=== PATIENT | female | born 1970 | race Caucasian/White ===

== ENCOUNTER → 2016-12-22 | Outpatient (REF) | payer OTHER ==
[~2016-12-22] MED LIST: ADDE10CA3 PO; BUSP1TAB PO; CEPH500C PO; CLON1TAB PO; COLA100C5 PO; HYDR50TA70 PO; IBUP-1022 PO; KLON2TAB PO; LAMI25TA PO; LAMO100T PO; LAMO150T PO; LAMO25TA2 PO; OXYC1TAB23 PO; PRIS1TAB PO; TRAZ50TA11 PO; VITA100T86 PO; VITA500046 PO; WELLTAB40 PO; ZOFR4TAB3 PO
[2016-12-22 10:46] LABS: MEAN CORPUSCULAR HEMOGLOBIN 33.2 pg (27.0-33.0); MEAN CORPUSCULAR HGB CONC 35.4 g/dl (32.0-36.5); MEAN CORPUSCULAR VOLUME 93.8 fl (80.0-96.0); RED CELL DISTRIBUTION WIDTH 13.3 % (11.5-14.5); WHITE BLOOD COUNT 6.2 K/mm3 (4.0-10.0)
[2016-12-22 10:58] LABS: ALBUMIN 3.9 GM/DL (3.2-5.2); ALBUMIN/GLOBULIN RATIO 1.03 (1.00-1.93); ALKALINE PHOSPHATASE 49 U/L (45-117); ALT/SGPT 17 U/L (12-78); ANION GAP 8 MEQ/L (8-16); AST/SGOT 14 U/L (15-37); BILIRUBIN,TOTAL 0.4 MG/DL (0.2-1.0); BLOOD UREA NITROGEN 7 MG/DL (7-18); CARBON DIOXIDE LEVEL 26 MEQ/L (21-32); CHLORIDE LEVEL 107 MEQ/L (98-107); CHOLESTEROL LEVEL 253 MG/DL (<200); CREATININE FOR GFR 0.85 MG/DL (0.55-1.02); GLOMERULAR FILTRATION RATE > 60.0 (>58); GLUCOSE, FASTING 86 MG/DL (70-105); POTASSIUM SERUM 4.1 MEQ/L (3.5-5.1); SODIUM LEVEL 141 MEQ/L (136-145); TOTAL PROTEIN 7.7 GM/DL (6.4-8.2); TRIGLYCERIDES LEVEL 111 MG/DL (<150)
== END ==
LOC: M SFHCPLAZ 08:24
PROVIDERS: ATTEND Nurse Practitioner Adult Health
DX: Z00.00 Encounter for general adult medical examination without abnormal findings (principal)

== ENCOUNTER → 2017-01-18 | Outpatient (REF) | payer OTHER | LOC: M SFHCLERA 09:24 | PROVIDERS: ATTEND Nurse Practitioner Family | DX: R30.0 Dysuria (principal) ==

== ENCOUNTER → 2017-01-19 | Outpatient (REF) | payer OTHER | LOC: M LAB REF 15:59 | PROVIDERS: ATTEND Physician Assistant | DX: J02.9 Acute pharyngitis, unspecified (principal) ==

== ENCOUNTER → 2017-05-09 | Outpatient (CLI) | payer OTHER | LOC: M RAD 07:41 | DX: R10.9 Unspecified abdominal pain (principal) ==

== ENCOUNTER → 2017-07-14 | Outpatient (CLI) | payer OTHER | LOC: M SMT 10:06 | DX: K59.00 Constipation, unspecified (principal) | CPT/HCPCS: 74018 ==

== ENCOUNTER → 2018-06-08 | Outpatient (CLI) | payer OTHER, BC ==
[~2018-06-08] MED LIST changes: -CLON1TAB PO; +CLON1TAB8 PO; +EXCETAB81 PO; -LAMO150T PO; +LAMO150T2 PO; -LAMO25TA2 PO; +LAMO25TA4 PO; +REXU1TAB3 PO; +TRAZ-160 PO; -TRAZ50TA11 PO; +VYVA70CA3 PO; +ZOFR4TAB14 PO; -ZOFR4TAB3 PO
--- NOTE | 2018-06-08 07:21 | ECGEPIP ---
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
[2018-06-08 08:26] LABS: BASO # 0.1 10^3/uL (0.0-0.2); EOS # 0.2 10^3/uL (0.0-0.50); EOS % 2.8 % (0.0-3.0); HEMATOCRIT 45.7 % (36.0-47.0); LYMPH # 1.5 10^3/uL (1.5-4.5); LYMPH % 23.7 % (24.0-44.0); MEAN CORPUSCULAR HEMOGLOBIN 31.7 pg (27.0-33.0); MEAN CORPUSCULAR HGB CONC 32.8 g/dl (32.0-36.5); MEAN CORPUSCULAR VOLUME 96.6 fl (80.0-96.0); MONO # 0.7 10^3/uL (0.0-0.8); MONO % 11.8 % (0.0-5.0); NEUTROPHILS # 3.7 10^3/uL (1.8-7.7); NEUTROPHILS % 60.5 % (36.0-66.0); PLATELET COUNT, AUTOMATED 247 10^3/uL (150-450); RED BLOOD COUNT 4.73 10^6/uL (4.00-5.40); WHITE BLOOD COUNT 6.1 10^3/uL (4.0-10.0)
[2018-06-08 08:56] LABS: BLOOD UREA NITROGEN 12 MG/DL (7-18); CALCIUM LEVEL 9.2 MG/DL (8.5-10.1); CARBON DIOXIDE LEVEL 26 MEQ/L (21-32); CHLORIDE LEVEL 108 MEQ/L (98-107); CREATININE FOR GFR 0.93 MG/DL (0.55-1.30); GLOMERULAR FILTRATION RATE > 60.0 (>58); GLUCOSE, FASTING 88 MG/DL (70-100); POTASSIUM SERUM 4.1 MEQ/L (3.5-5.1); SODIUM LEVEL 142 MEQ/L (136-145)
== END ==
LOC: M LAB 06:49
PROVIDERS: ATTEND Podiatrist
DX: M20.41 Other hammer toe(s) (acquired), right foot (principal); M79.674 Pain in right toe(s)

== ENCOUNTER 2018-06-16 06:49 | Day surgery (SDC) | payer OTHER, BC ==
[~2018-06-16] VITALS: Ht 157.5 cm; Wt 71.7 kg
[2018-06-16] MEDS ORDERED: LR 1,000 ML IV SCH ×2 (07:00→10:30)
[2018-06-16] MEDS ORDERED: PROPOFOL 200 MG/20 ML VIAL As Ordered ONE ×3 (07:12→09:38)
[2018-06-16] MEDS ORDERED: ONDANSETRON 4MG/2ML VIAL (J2405) As Ordered ONE (07:12)
[2018-06-16] MEDS ORDERED: LIDOCAINE 2% INJ 100 MG/5 ML SDV (FOR ANES.) As Ordered ONE (07:12)
[2018-06-16] MEDS ORDERED: MIDAZOLAM INJ 2 MG/2 ML VIAL (J2250) As Ordered ONE (07:13)
[2018-06-16] MEDS ORDERED: fentaNYL 100 MCG/2 ML INJECTION (J3010) As Ordered ONE (07:13)
[2018-06-16 07:50] LABS: URINE PREG TEST NEGATIVE (NEGATIVE)
[2018-06-16] MEDS ORDERED: dexameTHASONE 4 MG/ML 1ML VIAL (J1100) As Ordered ONE (08:23)
[2018-06-16] MEDS ORDERED: BACITRACIN PWD 50,000 UNITS VIAL As Ordered ONE (08:23)
[2018-06-16] MEDS ORDERED: NEOSPORIN GU IRRIG 20 ML VIAL As Ordered ONE (08:23)
[2018-06-16] MEDS ORDERED: LIDOCAINE 2% MDV 20 ML VIAL As Ordered ONE (08:23)
[2018-06-16] MEDS ORDERED: BUPIVACAINE HCL 0.5% 30 ML VIAL As Ordered ONE (08:23)
[2018-06-16] MEDS: PERCOCET 5MG/325MG TAB PO PRN ×2 (10:30→11:15)
[2018-06-16 11:05] VITALS: BP 129/66
--- NOTE | 2018-06-16 13:31 | REP ---
BILATERAL FOOT, SIX VIEWS: HISTORY: Arthroplasty. RIGHT FOOT: The patient is status post previous osteotomy of the first and second metatarsals . Metal screws are present. The patient is status post new arthroplasty of the right fourth digit. A metal pin traverses the proximal , intermediate and distal phalanges. There is no acute fracture or dislocation. The joint spaces are normal in appearance. IMPRESSION: The patient is status post new arthroplasty of the right fourth digit. There is anatomic alignment. LEFT FOOT: The patient is status post arthroplasty of the left fourth digit. A metal pin traverses the proximal , intermediate and distal phalanges. There is no acute fracture or dislocation. The joint spaces are normal in appearance. IMPRESSION: The patient is status post arthroplasty of the left fourth digit. There is anatomic alignment. Electronically Signed by Alban Lerner MD 06/16/2018 01:33 P
--- NOTE | 2018-06-16 19:18 | RO ---
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 PROCEDURE:1. SKIN PLASTY WITH DISTAL INTERPHALANGEAL JOINT ARTHROPLASTY AND EXTERNAL WIRE FIXATION 0.045 TIMES ONE 4TH TOE LEFT FOOT: 2.SKIN PLASTY WITH DISTAL INTERPHALANGEAL JOINT ARTHROPLASTY 4TH TOE RIGHT FOOT WITH EXTERNAL WIRE FIXATION AND 0.045 TIMES ONE SURGEON: Dr. Luisito Malave DPM. HORSE TRADER: None. ANESTHESIA: Local MAC. IRRIGATION: Dilate bacitracin, neomycin and polymyxin B solution. ESTIMATED BLOOD LOSS: Less than 2 mL. HEMOSTASIS: Ankle pneumatic tourniquet at 225 mmHg, 20 minutes on the right side and 21 minutes on the left side. DESCRIPTION OF OPERATION: Skin plasty with distal interphalangeal joint arthroplasty, 4th toe left foot, skin plasty of the distal interphalangeal joint arthroplasty 4th toe right foot, fixation is 0.045 external wire, 4th toe right foot, 4th toe left foot. DESCRIPTION OF OPERATION: On 06/16/2018 this 48-year-old white female was taken from her hospital room to the operating room and placed on the operating room table in the supine position. Following the induction of IV sedation, local and regional anesthesia bilateral extremities were prepped and draped in the usual aseptic manner. Attention was directed to the left extremity and the ankle pneumatic tourniquet was rapidly inflated to 225 mmHg after it exsanguinated with an Esmarch bandage. Attention was directed to the patient's 4th toe and the following procedure was performed. SKIN PLASTY WITH DISTAL INTERPHALANGEAL JOINT ARTHROPLASTY AND EXTERNAL WIRE FIXATION 0.045 TIMES ONE 4TH TOE LEFT FOOT: Attention was directed to the patient's left foot. There is noted to be a mallet toe deformity with a rotational deformity of the 4th toe. At this time a tear drop incision was placed over the middle phalanx with the tear-drop being shaped at the widest portion on the lateral margin. The skin and subcutaneous tissues were then excised, transverse tenotomy and capsulotomy was performed at the distal interphalangeal joint. The extensor joint tendon was retracted in a proximal direction and utilizing a power saw an osteotomy was performed through the majority of the middle phalanx with a bias being cut to take more on the lateral side. The bone was removed and the wound was flushed with copious amount of dilate Bacitracin, neomycin and polymyxin B solution, utilizing a external wire a wire was driven through the middle phalanx and into the middle and distal phalanx under C-ARM control. The wire was bent and a Jurgan ball was placed at the distal end of the wire. Utilizing a 4-0 supramid a modified Mcarthur type stitch was placed across the extensor tendon. Skin was copated and maintained with 4-0 Prolene in a simple interrupted type fashion. Attention was directed towards bandaging with a sterile compressive bandage applied consisting of Adaptic, 4 x 4's, 4 x 4 splints, Aurora, Kerlix, and Coban. Ankle pneumatic tourniquet was rapidly deflated and instantaneous capillary filling time was noted in digits in 1-5 of the patient's left foot. Attention was then directed to the patient's right foot and the following procedure was performed: SKIN PLASTY WITH DISTAL INTERPHALANGEAL JOINT ARTHROPLASTY 4TH TOE RIGHT FOOT WITH EXTERNAL WIRE FIXATION AND 0.045 TIMES ONE: Attention was directed to the patient's right foot where the procedure performed on the 4th toe of the left foot was now performed on the 4th toe of the right foot without variation or deletion. The only exception being that of anatomic location. Patient after having apparently tolerated the procedure well was taken from the operating room to the recovery room for further monitoring by the anesthesia department. Postoperative instructions were given. ALTAGRACIA
== END 2018-06-16 11:33 | disposition home or self-care (01) ==
LOC: M SDC 06:49
PROVIDERS: ATTEND Podiatrist
DX: M20.41 Other hammer toe(s) (acquired), right foot (principal); M20.42 Other hammer toe(s) (acquired), left foot; M79.675 Pain in left toe(s); M79.674 Pain in right toe(s); Z88.2 Allergy status to sulfonamides; Z79.899 Other long term (current) drug therapy; F41.9 Anxiety disorder, unspecified
CPT/HCPCS: 28285; 73630; 84703; 88300; J0690; J1100; J2250; J2405; J3010

== ENCOUNTER → 2018-09-14 | Outpatient (REF) | payer OTHER, BC ==
[2018-09-20 14:11] LABS: HPV LOW VOL RFLX Negative (Negative)
== END ==
LOC: M LAB REF 17:41
PROVIDERS: ATTEND Obstetrics & Gynecology
DX: Z12.4 Encounter for screening for malignant neoplasm of cervix (principal)
CPT/HCPCS: 87624; G0123

== ENCOUNTER 2018-12-13 10:22 | Emergency (ER) | payer OTHER, BC ==
[~2018-12-13] VITALS: Ht 154.9 cm; Wt 71.8 kg
[~2018-12-13 10:22] MED LIST changes: -TRAZ-160 PO; +TRAZ-252 PO
[2018-12-13 11:00] LABS: BASO # 0.1 10^3/uL (0.0-0.2); BASO % 0.9 % (0.0-1.0); EOS # 0.2 10^3/uL (0.0-0.50); EOS % 2.1 % (0.0-3.0); HEMATOCRIT 45.9 % (36.0-47.0); HEMOGLOBIN 15.5 g/dl (12.0-15.5); LYMPH # 1.9 10^3/uL (1.5-4.5); LYMPH % 20.8 % (24.0-44.0); MEAN CORPUSCULAR HEMOGLOBIN 32.4 pg (27.0-33.0); MEAN CORPUSCULAR HGB CONC 33.8 g/dl (32.0-36.5); MEAN CORPUSCULAR VOLUME 95.8 fl (80.0-96.0); MONO # 0.8 10^3/uL (0.0-0.8); MONO % 8.9 % (0.0-5.0); NEUTROPHILS # 6.2 10^3/uL (1.8-7.7); PLATELET COUNT, AUTOMATED 268 10^3/uL (150-450); RED BLOOD COUNT 4.79 10^6/uL (4.00-5.40); WHITE BLOOD COUNT 9.2 10^3/uL (4.0-10.0)
--- NOTE | 2018-12-13 11:39 | REP ---
CHEST, SINGLE VIEW: There is no evidence of acute infiltrate. No pleural effusion is seen. The heart is normal in size. The mediastinal silhouette is unremarkable. The visualized osseous structures are intact. IMPRESSION: No acute pulmonary disease. Electronically Signed by Luther Sykes MD 12/13/2018 02:40 P
[2018-12-13 11:51] LABS: ALBUMIN 3.6 GM/DL (3.2-5.2); ALT/SGPT 27 U/L (12-78); BILIRUBIN,DIRECT < 0.1 MG/DL (0.0-0.2); BILIRUBIN,TOTAL 0.3 MG/DL (0.2-1.0); BLOOD UREA NITROGEN 9 MG/DL (7-18); CALCIUM LEVEL 9.1 MG/DL (8.5-10.1); CARBON DIOXIDE LEVEL 21 MEQ/L (21-32); CHLORIDE LEVEL 107 MEQ/L (98-107); CK-MB VALUE MASS 1.3 NG/ML (<3.6); CPK CREATINE PHOSPHOKINASE 141 U/L (26-192); CREATININE FOR GFR 0.83 MG/DL (0.55-1.30); GLOMERULAR FILTRATION RATE > 60.0 (>58); GLUCOSE, FASTING 96 MG/DL (70-100); LIPASE 148 U/L (73-393); MB/CK RELATIVE INDEX 0.92 (< OR =4); NT-PRO BNP 36 PG/ML (<125); POTASSIUM SERUM 4.3 MEQ/L (3.5-5.1); SODIUM LEVEL 138 MEQ/L (136-145); TOTAL PROTEIN 7.4 GM/DL (6.4-8.2); TROPONIN I < 0.02 NG/ML (< 0.10)
[2018-12-13 17:08] LABS: CK-MB VALUE MASS < 1.0 NG/ML (<3.6); CPK CREATINE PHOSPHOKINASE 104 U/L (26-192); MB/CK RELATIVE INDEX 0.96 (< OR =4); TROPONIN I < 0.02 NG/ML (< 0.10)
[2018-12-13] MEDS ORDERED: ASPI81TA85 PO (17:38)
[2018-12-13] MEDS ORDERED: ASPIRIN 81 MG CHEW TABLET PO ONE (17:45)
[2018-12-13 18:13] VITALS: BP 138/72
--- NOTE | 2018-12-14 13:28 | ECGEPIP ---
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
== END 2018-12-13 18:17 | disposition home or self-care (01) ==
LOC: M ED 10:22
DX: R07.9 Chest pain, unspecified (principal); R00.0 Tachycardia, unspecified; F41.9 Anxiety disorder, unspecified; F32.9 Major depressive disorder, single episode, unspecified; Z77.22 Contact with and (suspected) exposure to environmental tobacco smoke (acute) (chronic); Z82.49 Family history of ischemic heart disease and other diseases of the circulatory system; Z79.82 Long term (current) use of aspirin; Z79.899 Other long term (current) drug therapy; Z88.2 Allergy status to sulfonamides

== ENCOUNTER → 2019-05-24 | Outpatient (CLI) | payer OTHER, BC ==
[~2019-05-24] MED LIST changes: +ASPI81TA85 PO; -LAMO100T PO; +LAMO100T3 PO; -LAMO150T2 PO; +LAMO150T3 PO
--- NOTE | 2019-05-24 13:27 | REP ---
BILATERAL SCREENING DIGITAL MAMMOGRAM WITH 3D TOMOSYNTHESIS: There are no palpable abnormalities or other breast complaints. The the patient states she has not had a clinical breast examination in over a year. The the patient states she performs self-breast examinations two times per year. The Tyrer Cuzick Score is: 9.2% . Comparison is 05/29/2014. The breasts are heterogeneously dense, which could obscure small masses. There is no dominant mass, micro calcific cluster or architectural distortion that would indicate malignancy. There are no additional findings on 3D tomosynthesiss. There is no change from the prior study. Impression: BIRADS/ACR category 1 mammogram. Negative. Recommendation: Routine annual screening mammography. Because of the increased breast density, annual adjunctive breast MRI in addition to screening mammography is recommended. These can be performed at alternating six month intervals. This mammogram was interpreted with the aid of a FDA approved computer-aided detection system. A. Negative mammogram reports should not delay biopsy if a dominant or clinically suspicious mass is present. B. Not all breast cancers are identified by mammography or tomosynthesis. C. Adenosis and dense breasts may obscure an underlying neoplasm. Patient letter M1 dense breasts. Electronically Signed by Luther Ibarra MD 05/24/2019 01:19 P
== END ==
LOC: M WHC 12:13
PROVIDERS: ATTEND Nurse Practitioner Adult Health
DX: Z12.31 Encounter for screening mammogram for malignant neoplasm of breast (principal)

== ENCOUNTER 2019-06-04 10:25 | Emergency (ER) | payer OTHER, BC ==
[~2019-06-04] VITALS: Ht 157.5 cm; Wt 75.3 kg
[2019-06-04] MEDS ORDERED: VYVA70CA3 (10:34)
[2019-06-04] MEDS ORDERED: SERT25TA21 (10:34)
--- NOTE | 2019-06-04 11:16 | REP ---
Clinical: Dizziness and blurred vision . Comparison: 10/28/2010 . Findings: The ventricles, sulci, and cisterns are normal in position and appearance. Sykes-white differentiation is maintained. No acute intracranial hemorrhage, mass/mass effect, pathology or trauma/injury. No evidence for acute infarction. No extra-axial fluid collection. Calvarium is intact. Paranasal sinuses and mastoid air cells are clear. Impression: Normal noncontrast head CT. No evidence for acute intracranial pathology or trauma/injury. Electronically Signed by Wilfrido Plummer MD 06/04/2019 11:07 A
--- NOTE | 2019-06-04 11:16 | REP ---
Clinical: Chest pain . Comparison: 12/13/2018 . Findings: The mediastinum and cardiac silhouette are stable and within normal limits for portable technique. The lung demarco are clear without acute consolidation, effusion, or pneumothorax. Skeletal structures are intact. Impression: No acute cardiopulmonary process appreciated. Electronically Signed by Wilfrido Plummer MD 06/04/2019 11:07 A
[2019-06-04] MEDS ORDERED: ACETAMINOPHEN 500 MG TAB PO ONE (11:45)
[2019-06-04] MEDS ORDERED: KETOROLAC 30 MG/ML VIAL (J1885) IV ONE (11:45)
[2019-06-04 12:01] LABS: BASO # 0.1 10^3/uL (0.0-0.2); BASO % 0.7 % (0.0-1.0); EOS # 0.2 10^3/uL (0.0-0.5); EOS % 2.2 % (0.0-3.0); HEMATOCRIT 46.1 % (36.0-47.0); LYMPH # 1.4 10^3/uL (1.5-5.0); LYMPH % 20.3 % (24.0-44.0); MEAN CORPUSCULAR HEMOGLOBIN 31.8 pg (27.0-33.0); MEAN CORPUSCULAR HGB CONC 32.5 g/dl (32.0-36.5); MEAN CORPUSCULAR VOLUME 97.9 fl (80.0-96.0); MONO # 0.5 10^3/uL (0.0-0.8); MONO % 7.9 % (0.0-5.0); NEUTROPHILS # 4.7 10^3/uL (1.5-8.5); NEUTROPHILS % 68.5 % (36.0-66.0); PLATELET COUNT, AUTOMATED 244 10^3/uL (150-450); RED BLOOD COUNT 4.71 10^6/uL (4.00-5.40); WHITE BLOOD COUNT 6.9 10^3/uL (4.0-10.0)
[2019-06-04 12:20] LABS: INR 1.04; PROTHROMBIN TIME 13.4 SECONDS (11.8-14.0)
[2019-06-04 12:21] LABS: PARTIAL THROMBOPLASTIN TIME 27.5 SECONDS (25.0-38.4)
[2019-06-04 12:37] LABS: BLOOD UREA NITROGEN 6 MG/DL (7-18); CALCIUM LEVEL 9.4 MG/DL (8.5-10.1); CARBON DIOXIDE LEVEL 27 MEQ/L (21-32); CHLORIDE LEVEL 108 MEQ/L (98-107); CK-MB VALUE MASS < 1.0 NG/ML (<3.6); CPK CREATINE PHOSPHOKINASE 228 U/L (26-192); CREATININE FOR GFR 0.76 MG/DL (0.55-1.30); FREE T4 1.13 NG/DL (0.76-1.46); GLOMERULAR FILTRATION RATE > 60.0 (>58); GLUCOSE, FASTING 86 MG/DL (70-100); LIPASE 106 U/L (73-393); MB/CK RELATIVE INDEX 0.44 (< OR =4); POTASSIUM SERUM 3.9 MEQ/L (3.5-5.1); SODIUM LEVEL 140 MEQ/L (136-145); TROPONIN I < 0.02 NG/ML (< 0.10)
--- NOTE | 2019-06-04 13:09 | REP ---
MR angiography the brain without contrast: History: Headache, blurred vision. Inability to type. Comparison CT study is from earlier this date. Technique: 3-D [id number] MR angiography of the brain is acquired in the usual fashion and maximal intensity projection images were generated in rotational format about the vertical and horizontal axes. In addition, source axial T1-weighted images are viewed in cine mode. MR angiographic findings: The distal vertebral arteries are patent and left -dominant. Basilar artery is a little tortuous but widely patent. The posterior cerebral vessels are normal and symmetric. 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 The left superior cerebellar artery is unremarkable. No other ruiz aneurysm is appreciated. No vessel cutoff or arteriovenous malformation is seen. Anterior and middle cerebral arteries are unremarkable. Distal internal carotid arteries appear intact. 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 Persistent origin of the right posterior cerebral artery. The A1 segment of the right anterior cerebral artery is somewhat hypoplastic. A left dominant vertebral. Otherwise negative. Electronically Signed by Shekhar Bennett MD 06/04/2019 01:01 P
--- NOTE | 2019-06-04 13:12 | REP ---
MRI brain without contrast: History: Unable to type. Headache and blurred vision. Rule out CVA. Comparison head CT study is from earlier this date. Technique: Axial and sagittal imaging planes are utilized for T1 and T2-weighted scans. Sequences include spin-echo, fast spin echo, FLAIR, and diffusion weighted sequences. MRI findings: No bony calvarial lesion is seen. Craniocervical junction and upper cervical cord are normal in appearance. There is no MR evidence of significant paranasal sinus disease. No intraorbital abnormality is seen. The lateral, third, and fourth ventricles are normal in size and position. Sykes-white differentiation pattern is intact above and below the tentorium. There is no evidence of intracranial hemorrhage. No mass, infarction, extra-axial fluid collection or midline shift is seen. No abnormal white matter lesion is seen. Diffusion weighted scans show no evidence of restricted diffusion to suggest acute ischemia. Impression: Negative noncontrast brain MRI study. Electronically Signed by Shekhar Bennett MD 06/04/2019 01:03 P
[2019-06-04 13:39] VITALS: BP 147/78
[2019-06-04] MEDS ORDERED: NORT25CA2 PO (13:43)
[2019-06-04] MEDS ORDERED: PERCOCET 5MG/325MG TAB PO ONE (13:45)
[2019-06-04 13:58] VITALS: BP 133/88
--- NOTE | 2019-06-04 19:45 | ECGEPIP ---
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
== END 2019-06-04 14:07 | disposition home or self-care (01) ==
LOC: M ED 10:25
DX: G43.909 Migraine, unspecified, not intractable, without status migrainosus (principal); I67.1 Cerebral aneurysm, nonruptured; R00.0 Tachycardia, unspecified; R94.31 Abnormal electrocardiogram [ECG] [EKG]; F41.9 Anxiety disorder, unspecified; F32.9 Major depressive disorder, single episode, unspecified; Z87.440 Personal history of urinary (tract) infections; Z79.899 Other long term (current) drug therapy; Z88.2 Allergy status to sulfonamides
CPT/HCPCS: 70450; 70544; 70551; 71045; 80047; 80048; 82550; 82553; 83690; 84439; 84443; 84484; 85025; 85610; 85730; 86850; 86900; 86901; 93005; 93041; 94760; 96374; 99284; J1885

== ENCOUNTER → 2019-12-07 | Outpatient (CLI) | payer OTHER, BC ==
[~2019-12-07] MED LIST changes: -ASPI81TA85 PO; +ASPI81TA86 PO; +NORT25CA2 PO; +PROHANCE 279.3MG/ML 15ML VIAL As Ordered ONE; +SERT25TA21; +VYVA70CA3
== END ==
LOC: M RAD 11:30
PROVIDERS: ATTEND Neurological Surgery
DX: I67.1 Cerebral aneurysm, nonruptured (principal)

== ENCOUNTER → 2020-04-10 | Outpatient (REF) | payer OTHER, BC ==
[~2020-04-10] MED LIST changes: -PROHANCE 279.3MG/ML 15ML VIAL As Ordered ONE
[2020-04-10 16:41] LABS: ALBUMIN 3.6 GM/DL (3.2-5.2); ALT/SGPT 27 U/L (12-78); BILIRUBIN,TOTAL 0.3 MG/DL (0.2-1.0); BLOOD UREA NITROGEN 9 MG/DL (7-18); CALCIUM LEVEL 10.1 MG/DL (8.5-10.1); CARBON DIOXIDE LEVEL 30 MEQ/L (21-32); CHLORIDE LEVEL 105 MEQ/L (98-107); CHOLESTEROL LEVEL 292 MG/DL (<200); CHOLESTEROL RISK RATIO 5.122 (<5); CREATININE FOR GFR 0.94 MG/DL (0.55-1.30); GLOMERULAR FILTRATION RATE > 60.0 (>58); GLUCOSE, FASTING 77 MG/DL (70-100); HDL CHOLESTEROL 57 MG/DL (>40); LDL CHOLESTEROL 181 MG/DL (<100); NON-HDL-C 235 MG/DL; POTASSIUM SERUM 4.5 MEQ/L (3.5-5.1); SODIUM LEVEL 140 MEQ/L (136-145); TOTAL 25(OH) VITAMIN D 40.1 NG/ML (30.0-100.0); TOTAL PROTEIN 7.7 GM/DL (6.4-8.2); TRIGLYCERIDES LEVEL 270 MG/DL (<150)
== END ==
LOC: M SFHCPLAZ 13:55
PROVIDERS: ATTEND Nurse Practitioner Adult Health
DX: Z00.00 Encounter for general adult medical examination without abnormal findings (principal); E55.9 Vitamin D deficiency, unspecified; Z83.49 Family history of other endocrine, nutritional and metabolic diseases

== ENCOUNTER → 2020-05-26 | Outpatient (CLI) | payer OTHER, BC ==
--- NOTE | 2020-05-26 08:22 | REPVR ---
PROCEDURE INFORMATION: Exam: MR Angiogram Head Without Contrast, Arteries Exam date and time: 05/26/2020 7:29 AM Age: 50 years old Clinical indication: Condition or disease; Aneurysm, cerebral; Patient HX: F/u; Additional info: Cerebral aneursym unruptured TECHNIQUE: Imaging protocol: MR angiogram head without contrast. Exam focused on the arteries. COMPARISON: MRA BRAIN W/O CONTRAST 06/04/2019 12:17 PM FINDINGS: ANTERIOR CIRCULATION: Right internal carotid artery: Intracranial segment is patent with no significant stenosis. No aneurysm. Right middle cerebral artery: No occlusion or significant stenosis. No aneurysm. Right anterior cerebral artery: There is hypoplasia of the A1 segment of the right anterior cerebral artery. Left internal carotid artery: Intracranial segment is patent with no significant stenosis. No aneurysm. Left middle cerebral artery: No occlusion or significant stenosis. No aneurysm. Left anterior cerebral artery: No occlusion or significant stenosis. No aneurysm. POSTERIOR CIRCULATION: Right vertebral artery: The right vertebral artery terminates in PICA. Left vertebral artery: No occlusion or significant stenosis. No aneurysm. Basilar artery: No occlusion or significant stenosis. No aneurysm. Right posterior cerebral artery: There is a origin of the right posterior cerebral artery. Left posterior cerebral artery: No occlusion or significant stenosis. No aneurysm. IMPRESSION: No acute abnormality. Electronically signed by: Marya Brewer On 05/26/2020 08:21:52 AM
== END ==
LOC: M RAD 06:27
PROVIDERS: ATTEND Neurological Surgery
DX: I67.1 Cerebral aneurysm, nonruptured (principal)

== ENCOUNTER → 2020-12-12 | Outpatient (CLI) | payer OTHER, BC ==
--- NOTE | 2020-12-13 21:37 | REPVR ---
PROCEDURE INFORMATION: Exam: MRA Head Without Contrast; Arteriography Exam date and time: 12/12/2020 10:26 AM Age: 50 years old Clinical indication: Condition or disease; Aneurysm, cerebral; Additional info: 6mo f/u aneurysm TECHNIQUE: Imaging protocol: Magnetic resonance angiography head without contrast. Exam focused on the arteries. COMPARISON: MRA BRAIN W/O CONTRAST 05/26/2020 7:17 AM FINDINGS: ANTERIOR CIRCULATION: Right internal carotid artery: Intracranial segment is patent with no significant stenosis. No aneurysm. Right middle cerebral artery: No occlusion or significant stenosis. No aneurysm. Right anterior cerebral artery: Absent A1 segment on the right. Left internal carotid artery: Intracranial segment is patent with no significant stenosis. No aneurysm. Left middle cerebral artery: No occlusion or significant stenosis. No aneurysm. Left anterior cerebral artery: No occlusion or significant stenosis. No aneurysm. POSTERIOR CIRCULATION: Right vertebral artery: No occlusion or significant stenosis. No aneurysm. Left vertebral artery: No occlusion or significant stenosis. No aneurysm. Basilar artery: No occlusion or significant stenosis. No aneurysm. Right posterior cerebral artery: origin of the right posterior cerebral artery. Left posterior cerebral artery: No occlusion or significant stenosis. No aneurysm. Cerebellar arteries: Superior cerebellar arteries: Stable 2 mm aneurysm at the origin of the right superior cerebellar artery. Left superior cerebellar artery unremarkable. IMPRESSION: 1. Absent A1 segment on the right. 2. origin of the right posterior cerebral artery. 3. 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 4. No acute findings. Electronically signed by: Stephen Perry On 12/13/2020 21:37:29 PM
== END ==
LOC: M PLAIMG 09:25
PROVIDERS: ATTEND Physician Assistant Medical
DX: I67.1 Cerebral aneurysm, nonruptured (principal)

== ENCOUNTER → 2021-06-15 | Outpatient (CLI) | payer OTHER, BC ==
[2021-06-15 11:17] LABS: ALBUMIN 3.5 GM/DL (3.2-5.2); BILIRUBIN,TOTAL 0.4 MG/DL (0.2-1.0); CALCIUM LEVEL 9.3 MG/DL (8.5-10.1); CHOLESTEROL RISK RATIO 4.095 (<5); CREATININE FOR GFR 1.06 MG/DL (0.55-1.30); GLOMERULAR FILTRATION RATE 58.4 (>51); POTASSIUM SERUM 4.6 MEQ/L (3.5-5.1); THYROID STIMULATING HORMONE 1.66 uIU/ML (0.358-3.740); TOTAL PROTEIN 7.5 GM/DL (6.4-8.2)
[2021-06-15 11:56] LABS: TOTAL 25(OH) VITAMIN D 43.4 NG/ML (30.0-100.0)
== END ==
LOC: M PLALAB 07:58
PROVIDERS: ATTEND Nurse Practitioner Adult Health
DX: Z00.00 Encounter for general adult medical examination without abnormal findings (principal); E55.9 Vitamin D deficiency, unspecified; Z83.49 Family history of other endocrine, nutritional and metabolic diseases

== ENCOUNTER → 2021-06-15 | Outpatient (CLI) | payer OTHER, BC | LOC: M WHC 08:23 | PROVIDERS: ATTEND Nurse Practitioner Adult Health | DX: N63.0 Unspecified lump in unspecified breast (principal); R92.1 Mammographic calcification found on diagnostic imaging of breast; R92.0 Mammographic microcalcification found on diagnostic imaging of breast; N60.12 Diffuse cystic mastopathy of left breast | CPT/HCPCS: 76642; 77066; G0279 ==

== ENCOUNTER → 2021-06-25 | Outpatient (CLI) | payer OTHER, BC ==
[~2021-06-25] MED LIST changes: +**SFHN** LIDOCAINE 1% MDV 20ML VIAL ONE; +**SFHN** SODIUM BICARBONATE 8.4% 50MEQ 50ML VIAL ONE
[2021-06-25 14:48] VITALS: BP 120/78
== END ==
LOC: M WHCPRO 13:24
PROVIDERS: ATTEND Nurse Practitioner Adult Health
DX: D24.1 Benign neoplasm of right breast (principal); N60.11 Diffuse cystic mastopathy of right breast; R92.1 Mammographic calcification found on diagnostic imaging of breast

== ENCOUNTER 2021-09-15 11:58 | Emergency (ER) | payer OTHER, BC ==
[~2021-09-15] VITALS: Ht 157.5 cm; Wt 155.0 kg
[~2021-09-15 11:58] MED LIST changes: -**SFHN** LIDOCAINE 1% MDV 20ML VIAL ONE; -**SFHN** SODIUM BICARBONATE 8.4% 50MEQ 50ML VIAL ONE
[2021-09-15 12:39] LABS: BASO # 0.1 10^3/uL (0.0-0.2); BASO % 0.6 % (0.0-1.0); EOS # 0.8 10^3/uL (0.0-0.5); EOS % 10.1 % (0.0-3.0); HEMATOCRIT 46.2 % (36.0-47.0); HEMOGLOBIN 15.4 g/dl (12.0-15.5); LYMPH # 2.2 10^3/uL (1.5-5.0); LYMPH % 27.3 % (24.0-44.0); MEAN CORPUSCULAR HEMOGLOBIN 32.2 pg (27.0-33.0); MEAN CORPUSCULAR HGB CONC 33.3 g/dl (32.0-36.5); MEAN CORPUSCULAR VOLUME 96.7 fl (80.0-96.0); MONO # 0.7 10^3/uL (0.0-0.8); MONO % 8.7 % (2.0-8.0); NEUTROPHILS # 4.4 10^3/uL (1.5-8.5); NEUTROPHILS % 53.1 % (36.0-66.0); PLATELET COUNT, AUTOMATED 267 10^3/uL (150-450); RED BLOOD COUNT 4.78 10^6/uL (4.00-5.40); WHITE BLOOD COUNT 8.2 10^3/uL (4.0-10.0)
[2021-09-15 12:53] LABS: INR 0.98; PROTHROMBIN TIME 13.4 SECONDS (12.7-14.5)
[2021-09-15 12:54] LABS: PARTIAL THROMBOPLASTIN TIME 28.6 SECONDS (25.9-37.0)
[2021-09-15] MEDS ORDERED: diphenhydrAMINE 50MG/ML VIAL (J1200) IV STA (12:55)
[2021-09-15] MEDS ORDERED: METOCLOPRAMIDE INJ 10MG/2ML VIAL (J2765 PER 1) IV ONE (12:55)
[2021-09-15] MEDS ORDERED: KETOROLAC 30 MG/ML 1ML VIAL IV ONE (12:55)
[2021-09-15] MEDS ORDERED: NS 1,000 ML IV ONE (12:55)
[2021-09-15 13:08] LABS: BLOOD UREA NITROGEN 7 MG/DL (7-18); CALCIUM LEVEL 9.2 MG/DL (8.5-10.1); CARBON DIOXIDE LEVEL 27 MEQ/L (21-32); CHLORIDE LEVEL 107 MEQ/L (98-107); CREATININE FOR GFR 0.92 MG/DL (0.55-1.30); GLOMERULAR FILTRATION RATE > 60.0 (>51); GLUCOSE, FASTING 91 MG/DL (70-100); POTASSIUM SERUM 3.7 MEQ/L (3.5-5.1); SODIUM LEVEL 139 MEQ/L (136-145)
[2021-09-15] MEDS ORDERED: ISOVUE-370 76% 100ML VIAL As Ordered ONE (13:13)
[2021-09-15 15:30] VITALS: BP 118/61
== END 2021-09-15 15:37 | disposition home or self-care (01) ==
LOC: M ED 11:58
DX: G43.909 Migraine, unspecified, not intractable, without status migrainosus (principal); I67.1 Cerebral aneurysm, nonruptured; F31.9 Bipolar disorder, unspecified; Z79.899 Other long term (current) drug therapy; Z88.2 Allergy status to sulfonamides; Z88.8 Allergy status to other drugs, medicaments and biological substances
CPT/HCPCS: 70450; 70496; 70498; 71045; 80047; 80048; 84484; 85025; 85610; 85730; 93005; 93041; 94760; 96361; 96374; 96375; 99285; J1200; J1885; J2765; Q9967

== ENCOUNTER 2022-12-20 10:14 | Emergency (ER) | payer OTHER, BC ==
[~2022-12-20] VITALS: Ht 154.9 cm; Wt 79.3 kg
[~2022-12-20 10:14] MED LIST changes: +CLON-952 PO; -KLON2TAB PO
[2022-12-20] MEDS ORDERED: IBUP200T46 PO (10:23)
[2022-12-20] MEDS ORDERED: ADDE30CA3 PO (10:23)
[2022-12-20] MEDS ORDERED: zebeta (10:23)
[2022-12-20 12:57] VITALS: BP 126/70; TEMP 97; O2SAT 96
== END 2022-12-20 12:58 | disposition home or self-care (01) ==
LOC: M ED 10:14
DX: S46.012A Strain of muscle(s) and tendon(s) of the rotator cuff of left shoulder, initial encounter (principal); X58.XXXA Exposure to other specified factors, initial encounter; I10 Essential (primary) hypertension; Z88.2 Allergy status to sulfonamides; Z88.8 Allergy status to other drugs, medicaments and biological substances

== ENCOUNTER → 2023-04-21 | Outpatient (CLI) | payer OTHER, BC ==
[~2023-04-21] MED LIST changes: +ADDE30CA3 PO; +IBUP200T46 PO; +zebeta
== END ==
LOC: M WHC 12:32
PROVIDERS: ATTEND Nurse Practitioner Adult Health
DX: Z12.31 Encounter for screening mammogram for malignant neoplasm of breast (principal); R92.333 Mammographic heterogeneous density, bilateral breasts; Z80.3 Family history of malignant neoplasm of breast

== ENCOUNTER → 2024-08-27 | Outpatient (CLI) | payer OTHER, BC | LOC: M WHC 09:12 | PROVIDERS: ATTEND Nurse Practitioner Adult Health | DX: Z12.31 Encounter for screening mammogram for malignant neoplasm of breast (principal) ==

== ENCOUNTER → 2024-09-06 | Outpatient (CLI) | payer OTHER, BC ==
[~2024-09-06] MED LIST changes: +LAMO-18 PO; -LAMO25TA4 PO
== END ==
LOC: M WHC 07:57
PROVIDERS: ATTEND Nurse Practitioner Adult Health
DX: R92.8 Other abnormal and inconclusive findings on diagnostic imaging of breast (principal)

== ENCOUNTER → 2024-09-11 | Outpatient (CLI) | payer OTHER, BC ==
[2024-09-11 09:58] LABS: HEMATOCRIT 47.2 % (36.0-47.0); HEMOGLOBIN 15.4 g/dl (12.0-15.5); MEAN CORPUSCULAR HEMOGLOBIN 31.2 pg (27.0-33.0); MEAN CORPUSCULAR HGB CONC 32.6 g/dl (32.0-36.5); MEAN CORPUSCULAR VOLUME 95.5 fl (80.0-96.0); PLATELET COUNT, AUTOMATED 258 10^3/uL (150-450); RED BLOOD COUNT 4.94 10^6/uL (4.00-5.40); WHITE BLOOD COUNT 5.8 10^3/uL (4.0-10.0)
[2024-09-11 10:24] LABS: ALBUMIN 3.6 G/DL (3.2-5.2); ALKALINE PHOSPHATASE 70 U/L (35-104); ALT/SGPT 18 U/L (7.0-40); AST/SGOT 12 U/L (<34); BILIRUBIN,TOTAL 0.4 MG/DL (0.3-1.2); BLOOD UREA NITROGEN 16 MG/DL (9-23); CALCIUM LEVEL 9.7 MG/DL (8.5-10.1); CARBON DIOXIDE LEVEL 28 MMOL/L (20-31); CHLORIDE LEVEL 106 MMOL/L (98-107); CHOLESTEROL LEVEL 240 MG/DL (<200); CHOLESTEROL RISK RATIO 3.94 (<5); CREATININE FOR GFR 0.76 MG/DL (0.55-1.30); GLOMERULAR FILTRATION RATE > 90.0 (>51); GLUCOSE, FASTING 87 MG/DL (60-100); HDL CHOLESTEROL 60.9 MG/DL (>40); LDL CHOLESTEROL 150.1 MG/DL (<100); NON-HDL-C 179.1 MG/DL; POTASSIUM SERUM 4.4 MMOL/L (3.5-5.1); SODIUM LEVEL 141 MMOL/L (136-145); TOTAL PROTEIN 7.1 G/DL (5.7-8.2); TRIGLYCERIDES LEVEL 145 MG/DL (<150)
[2024-09-11 10:32] LABS: FOLLICLE STIMULATING HORMONE 27.3 mIU/ML; TOTAL 25(OH) VITAMIN D 70.8 NG/ML (20.0-100.0)
== END ==
LOC: M PLALAB 08:20
PROVIDERS: ATTEND Nurse Practitioner Adult Health
DX: N95.1 Menopausal and female climacteric states (principal); Z83.49 Family history of other endocrine, nutritional and metabolic diseases; D72.819 Decreased white blood cell count, unspecified; E55.9 Vitamin D deficiency, unspecified

== ENCOUNTER → 2024-11-12 | Outpatient (CLI) | payer OTHER ==
[~2024-11-12] MED LIST changes: +BISO5TAB14 PO; +CLON0.25 PO; +MAGN200T PO; +THERTAB52 PO; +VITA100093 PO; +VITAE40CA PO
[2024-11-12 12:43] LABS: BASO # 0.1 10^3/uL (0.0-0.2); BASO % 0.9 % (0.0-1.0); EOS # 0.3 10^3/uL (0.0-0.5); EOS % 3.2 % (0.0-3.0); LYMPH # 2.6 10^3/uL (1.5-5.0); LYMPH % 33.2 % (24.0-44.0); MONO # 0.8 10^3/uL (0.0-0.8); MONO % 10.8 % (2.0-8.0); NEUTROPHILS # 4.0 10^3/uL (1.5-8.5); NEUTROPHILS % 51.6 % (36.0-66.0); PLATELET COUNT, AUTOMATED 256 10^3/uL (150-450)
[2024-11-12 12:50] LABS: INR 0.92
[2024-11-12 13:19] LABS: FREE T4 1.17 NG/DL (0.89-1.76)
[2024-11-12 13:20] LABS: ALT/SGPT 19 U/L (7.0-40); AST/SGOT 16 U/L (<34); CALCIUM LEVEL 9.9 MG/DL (8.5-10.1); CARBON DIOXIDE LEVEL 27 MMOL/L (20-31); CHLORIDE LEVEL 104 MMOL/L (98-107); CREATININE FOR GFR 0.78 MG/DL (0.55-1.30); GLOMERULAR FILTRATION RATE > 90.0 (>51); POTASSIUM SERUM 5.2 MMOL/L (3.5-5.1); SODIUM LEVEL 143 MMOL/L (136-145)
== END ==
LOC: M PLALAB 10:25
PROVIDERS: ATTEND Family Medicine
DX: Z01.818 Encounter for other preprocedural examination (principal)

== ENCOUNTER 2024-11-28 07:20 | Observation (INO) | payer OTHER ==
[2024-11-20] MEDS: HEPARIN SOD 5000 UNITS/ML 1 ML VIAL/SYRINGE SQ ONE (06:00)
[2024-11-20] MEDS: LIDOCAINE 1% MDV 20 ML VIAL SC STA (08:19)
[2024-11-20] MEDS: ceFAZolin SOD 2 GM IV ONCE IV ONE (10:06)
[~2024-11-28] VITALS: Ht 157.5 cm; Wt 81.6 kg
[2024-11-28] VITALS (7 sets, daily range): BP systolic 97–111; BP diastolic 57–64; TEMP 96.8–98; O2SAT 91–96
[2024-11-28] MEDS: ceFAZolin SOD 2 GM IV ONCE IV ONE (08:05)
[2024-11-28] MEDS ORDERED: LIDOCAINE 2% 100 MG/5 ML SDV (FOR ANES.) As Ordered ONE (08:07)
[2024-11-28] MEDS ORDERED: ROCURONIUM BROMIDE 50MG/5ML VIAL As Ordered ONE (08:07)
[2024-11-28] MEDS ORDERED: SUGAMMADEX SODIUM 500 MG/5 ML VIAL As Ordered ONE (08:07)
[2024-11-28] MEDS ORDERED: ONDANSETRON 4MG 2ML VIAL As Ordered ONE (08:08)
[2024-11-28] MEDS ORDERED: dexAMETHasone 4 MG/ML 1 ML VIAL As Ordered ONE (08:08)
[2024-11-28] MEDS ORDERED: MAGN400C PO (08:13)
[2024-11-28] MEDS ORDERED: D 10CAP PO (08:13)
[2024-11-28] MEDS ORDERED: MIDAZOLAM INJ 2 MG/2 ML VIAL As Ordered ONE (08:14)
[2024-11-28] MEDS ORDERED: HOME MED LIST COMPLETE! XX SCH (08:15)
[2024-11-28] MEDS ORDERED: dexmedeTOMIDine (4 MCG/ML) 200 MCG/50 ML BTL As Ordered ONE (08:17)
[2024-11-28] MEDS ORDERED: LR 1,000 ML IV SCH (08:30)
[2024-11-28] MEDS: SCOPOLAMINE 1MG TRANSDERMAL PATCH TOP ONE (08:32)
[2024-11-28] MEDS: METHYLENE BLUE 0.5% (5 MG/ML) 10 ML AMP As Ordered ONE (08:50)
[2024-11-28] MEDS ORDERED: ACETAMINOPHEN 1000MG/100ML IV BAG As Ordered ONE (10:13)
[2024-11-28] MEDS: HEPARIN SOD 5000 UNITS/ML 1 ML VIAL/SYRINGE SQ ONE (10:18)
[2024-11-28] MEDS ORDERED: HYDROmorphone HCL 2 MG/ML 1 ML VIAL As Ordered ONE (11:16)
[2024-11-28] MEDS: GENTAMICIN SULF 80 MG/2 ML VIAL As Ordered ONE (15:05)
[2024-11-28] MEDS ORDERED: traMADol 50 MG TAB PO PRN (16:50)
[2024-11-28] MEDS ORDERED: ONDANSETRON 4MG 2ML VIAL IV PRN (16:50)
[2024-11-28] MEDS ORDERED: MIRALAX *UNIT DOSE* 17 GM PACKET PO PRN (16:50)
[2024-11-28] MEDS ORDERED: HYDROMORPHONE HCL 0.5 MG/0.5 ML SYRINGE IV PRN (16:55)
[2024-11-28] MEDS: LR 1,000 ML IV SCH ×2 (16:55→20:28)
[2024-11-28] MEDS: PROMETHAZINE 25MG/ML 1ML VIAL IV STA (17:08)
[2024-11-28] MEDS: DOCUSATE SODIUM 100 MG CAPSULE PO SCH (20:06)
[2024-11-28] MEDS: ACETAMINOPHEN *IV* 1,000 MG in IV 1 EA IV ONE (20:27)
[2024-11-28] MEDS ORDERED: ACETAMINOPHEN 500 MG TAB PO SCH (21:00)
[2024-11-28] MEDS: ceFAZolin SODIUM 2 GM in DEXTROSE 5% (D5W) ADV/MINI-BAG 50 ML IV SCH (21:26)
[2024-11-29 00:02] VITALS: BP 97/57; TEMP 97.6; O2SAT 92
[2024-11-29 06:01] VITALS: BP 101/51; TEMP 97.2; O2SAT 93
[2024-11-29] MEDS ORDERED: OXYC-517 PO (07:03)
[2024-11-29 08:00] VITALS: BP 127/71; TEMP 98.1; O2SAT 95
[2024-11-29 09:15] VITALS: BP 101/51
[2024-11-29] MEDS: ACETAMINOPHEN 500 MG TAB PO SCH (09:17)
[2024-11-29] MEDS: lamoTRIgine 100 MG TAB PO SCH (09:17)
[2024-11-29 11:36] VITALS: BP 106/57; TEMP 98.2; O2SAT 94
== END 2024-11-29 12:55 | disposition home or self-care (01) ==
LOC: M SDC 07:20 → M MS5PR 07:21
PROVIDERS: ADMIT Surgery; ATTEND Surgery
DX: C50.912 Malignant neoplasm of unspecified site of left female breast (principal)
CPT/HCPCS: 19120; 19303; 19357; 38525; 38900; 88305; 88307; 96365; 96366; 96375; A9520; C1789; J0131; J0665; J0666; J0690; J1100; J1171; J1580; J2250; J2550; J2765; J3010; Q4116

== ENCOUNTER → 2024-12-26 | Outpatient (CLI) | payer OTHER ==
[~2024-12-26] MED LIST changes: +D 10CAP PO; -IBUP-1022 PO; +IBUP600T42 PO; +MAGN400C PO; +OXYC-517 PO
== END ==
LOC: M WHC 10:36
PROVIDERS: ATTEND Student in an Organized Health Care Education/Training Program
DX: C50.919 Malignant neoplasm of unspecified site of unspecified female breast (principal)

== ENCOUNTER 2025-01-03 07:12 | Day surgery (SDC) | payer OTHER ==
[~2025-01-03] VITALS: Ht 157.5 cm; Wt 82.6 kg
[~2025-01-03 07:12] MED LIST changes: +CALCCAP4 PO
[2025-01-03 08:22] LABS: PLATELET COUNT, AUTOMATED 299 10^3/uL (150-450)
[2025-01-03] MEDS ORDERED: dexAMETHasone 4 MG/ML 1 ML VIAL As Ordered ONE (08:49)
[2025-01-03] MEDS ORDERED: LIDOCAINE 2% 100 MG/5 ML SDV (FOR ANES.) As Ordered ONE (08:49)
[2025-01-03] MEDS ORDERED: ONDANSETRON 4MG 2ML VIAL As Ordered ONE (08:50)
[2025-01-03 08:55] LABS: CALCIUM LEVEL 9.4 MG/DL (8.5-10.1); CARBON DIOXIDE LEVEL 28.0 MMOL/L (20-31); CHLORIDE LEVEL 107.0 MMOL/L (98-107); CREATININE FOR GFR 0.79 MG/DL (0.55-1.30); GLOMERULAR FILTRATION RATE 89.4 (>51); POTASSIUM SERUM 4.1 MMOL/L (3.5-5.1); SODIUM LEVEL 144.0 MMOL/L (136-145)
[2025-01-03] MEDS ORDERED: MIDAZOLAM INJ 2 MG/2 ML VIAL As Ordered ONE (09:22)
[2025-01-03] MEDS: ceFAZolin SOD 2 GM IV ONCE IV ONE (09:41)
[2025-01-03] MEDS ORDERED: ACETAMINOPHEN 1000MG/100ML IV BAG As Ordered ONE (09:43)
[2025-01-03] MEDS ORDERED: LETR2.5T2 PO (10:13)
[2025-01-03] MEDS: GENTAMICIN SULF 80 MG/2 ML VIAL As Ordered ONE (10:18)
[2025-01-03] MEDS ORDERED: LR 1,000 ML IV SCH (10:50)
[2025-01-03] MEDS ORDERED: TRAM50TA2 PO (11:06)
[2025-01-03] MEDS: HYDROMORPHONE HCL 0.5 MG/0.5 ML SYRINGE IV PRN (11:12)
[2025-01-03 12:15] VITALS: BP 137/74; TEMP 97.6; O2SAT 98
== END 2025-01-03 12:22 | disposition home or self-care (01) ==
LOC: M SDC 07:12
PROVIDERS: ATTEND Plastic Surgery Surgery of the Hand
DX: L90.5 Scar conditions and fibrosis of skin (principal); Z85.3 Personal history of malignant neoplasm of breast; Z88.2 Allergy status to sulfonamides; Z88.8 Allergy status to other drugs, medicaments and biological substances; I10 Essential (primary) hypertension; F41.9 Anxiety disorder, unspecified; F32.A Depression, unspecified; Z90.13 Acquired absence of bilateral breasts and nipples
CPT/HCPCS: 13101; 36415; 80048; 85027; 87070; 87075; 87205; 88302; J0131; J0690; J1100; J1171; J1580; J2250; J3010

== ENCOUNTER → 2025-03-08 | Outpatient (CLI) | payer OTHER ==
[~2025-03-08] MED LIST changes: +CALC-356 PO; +KLON0.5T8 PO; +LETR2.5T2 PO; +TRAM50TA2 PO; +TRIA1CR80 TOP
[2025-03-08 15:41] LABS: BASO # 0.1 10^3/uL (0.0-0.2); BASO % 0.9 % (0.0-1.0); EOS # 0.3 10^3/uL (0.0-0.5); EOS % 3.7 % (0.0-3.0); LYMPH # 2.6 10^3/uL (1.5-5.0); LYMPH % 34.6 % (24.0-44.0); MONO # 0.9 10^3/uL (0.0-0.8); MONO % 11.8 % (2.0-8.0); NEUTROPHILS # 3.6 10^3/uL (1.5-8.5); NEUTROPHILS % 48.9 % (36.0-66.0); PLATELET COUNT, AUTOMATED 310 10^3/uL (150-450)
[2025-03-08 15:44] LABS: ALT/SGPT 27.0 U/L (7.0-40); AST/SGOT 28.0 U/L (<34); CALCIUM LEVEL 9.7 MG/DL (8.5-10.1); CARBON DIOXIDE LEVEL 30.0 MMOL/L (20-31); CHLORIDE LEVEL 102.0 MMOL/L (98-107); CREATININE FOR GFR 0.81 MG/DL (0.55-1.30); GLOMERULAR FILTRATION RATE 86.8 (>51); POTASSIUM SERUM 4.1 MMOL/L (3.5-5.1); SODIUM LEVEL 142.0 MMOL/L (136-145)
== END ==
LOC: M PLALAB 13:35
PROVIDERS: ATTEND Physician Assistant
DX: T81.31XA Disruption of external operation (surgical) wound, not elsewhere classified, initial encounter (principal); Z85.3 Personal history of malignant neoplasm of breast; Y83.8 Other surgical procedures as the cause of abnormal reaction of the patient, or of later complication, without mention of misadventure at the time of the procedure

== ENCOUNTER 2025-03-12 06:04 | Day surgery (SDC) | payer OTHER ==
[~2025-03-12] VITALS: Ht 157.5 cm; Wt 81.0 kg
[2025-03-12] MEDS ORDERED: LR 1,000 ML IV SCH ×2 (06:30→08:45)
[2025-03-12] MEDS ORDERED: dexAMETHasone 4 MG/ML 1 ML VIAL As Ordered ONE (07:17)
[2025-03-12] MEDS ORDERED: ROCURONIUM BROMIDE 50MG/5ML VIAL As Ordered ONE (07:17)
[2025-03-12] MEDS ORDERED: SUGAMMADEX SODIUM 500 MG/5 ML VIAL As Ordered ONE (07:17)
[2025-03-12] MEDS ORDERED: MIDAZOLAM INJ 2 MG/2 ML VIAL As Ordered ONE (07:17)
[2025-03-12] MEDS ORDERED: LIDOCAINE 2% 100 MG/5 ML SDV (FOR ANES.) As Ordered ONE (07:17)
[2025-03-12] MEDS ORDERED: KETOROLAC 30 MG/ML 1 ML VIAL As Ordered ONE (07:18)
[2025-03-12] MEDS ORDERED: ONDANSETRON 4MG/2ML VIAL As Ordered ONE (07:18)
[2025-03-12] MEDS ORDERED: dexmedeTOMIDine (4 MCG/ML) 200 MCG/50 ML BTL As Ordered ONE (07:21)
[2025-03-12] MEDS: ceFAZolin SOD 2 GM IV ONCE IV ONE (07:37)
[2025-03-12] MEDS ORDERED: ACETAMINOPHEN 1000MG/100ML IV BAG As Ordered ONE (07:42)
[2025-03-12] MEDS: GENTAMICIN SULF 80 MG/2 ML VIAL As Ordered ONE (08:30)
[2025-03-12] MEDS ORDERED: HYDROMORPHONE HCL 0.5 MG/0.5 ML SYRINGE IV PRN (08:45)
[2025-03-12 10:01] VITALS: BP 109/59; TEMP 97.6; O2SAT 98
== END 2025-03-12 10:23 | disposition home or self-care (01) ==
LOC: M SDC 06:04
PROVIDERS: ATTEND Plastic Surgery Surgery of the Hand
DX: T81.31XA Disruption of external operation (surgical) wound, not elsewhere classified, initial encounter (principal); Z85.3 Personal history of malignant neoplasm of breast; I10 Essential (primary) hypertension; F41.9 Anxiety disorder, unspecified; F32.A Depression, unspecified; Z79.899 Other long term (current) drug therapy; Z88.2 Allergy status to sulfonamides; Z88.8 Allergy status to other drugs, medicaments and biological substances
CPT/HCPCS: 11042; 87070; 87075; 87205; 88304; J0131; J0688; J1100; J1580; J1885; J2250; J2765; J3010